=== PATIENT | female | born 1985 | race Caucasian/White ===

== ENCOUNTER 2018-06-10 12:51 | Day surgery (SDC) | payer OTHER ==
[2018-06-10] MEDS ORDERED: KETOROLAC 15 MG/1 ML SDV IVP ONE (13:19)
--- NOTE | 2018-06-10 13:19 | EDPHY ---
H & P Stated Complaint: LLQ Pain - HX of Ovarian Cyst Time Seen by Provider: 06/10/18 13:18 HPI/ROS: CHIEF COMPLAINT: Left lower quadrant pain HISTORY OF PRESENT ILLNESS: The patient presents to the ED with a 2-3 year history of sharp left lower quadrant pain or reminiscent of her prior ovarian cyst several years ago. The patient denies any dysuria or vaginal discharge. She denies any hematuria. She denies prior history of abdominal surgery. She has been using some ibuprofen oxycodone at home for management of her symptoms. The patient denies any vomiting or diarrhea. She denies any additional respiratory symptoms. The patient reports her pain is moderate to severe in nature. REVIEW OF SYSTEMS: A comprehensive 10 point review of systems is otherwise negative aside from elements mentioned in the history of present illness. Source: Patient Exam Limitations: No limitations - Personal History LMP (Females 10-55): Now Current Tetanus Diphtheria and Acellular Pertussis (TDAP): Yes - Medical/Surgical History Hx Asthma: No Hx Chronic Respiratory Disease: No Hx Diabetes: No Hx Cardiac Disease: No Hx Renal Disease: No Hx Cirrhosis: No Hx Alcoholism: No Hx HIV/AIDS: No Hx Splenectomy or Spleen Trauma: No Other PMH: Ovarian Cysts - Social History Smoking Status: Former smoker - Physical Exam Exam: General Appearance: Alert, no distress Eyes: Pupils equal and round no pallor or injection ENT, Mouth: Mucous membranes moist Respiratory: There are no retractions, lungs are clear to auscultation Cardiovascular: Regular rate and rhythm Gastrointestinal: Tenderness to palpation the left lower quadrant over the ovary, no peritoneal signs, no guarding, no CVA tenderness Neurological: 5/5 strength all 4 extremities Skin: Warm and dry, no rashes Musculoskeletal: Neck is supple nontender Extremities: symmetrical, full range of motion Constitutional: Initial Vital Signs Temperature (C) 36.9 C 06/10/18 13:02 Heart Rate 72 06/10/18 13:02 Respiratory Rate 18 06/10/18 13:02 Blood Pressure 116/82 H 06/10/18 13:02 O2 Sat (%) 98 06/10/18 13:02 O2 Delivery Mode Room Air O2 (L/minute) 2 Allergies/Adverse Reactions: gluten Allergy (Verified 06/10/18 13:01) Home Medications: Medication Instructions Recorded NK [No Known Home Meds] 07/25/18 Medical Decision Making - Diagnostics Imaging Results: Imaging Impressions Pelvic/Renal Ultrasound 06/10/18 13:33 Impression: 1. Enlarged left adnexa with dominant cystic component centrally and tiny follicles within presumed edematous ovarian tissue without evidence of internal color flow enhancement suspicious for left adnexal torsion . 2. Normal-appearing uterus and right ovary. Findings discussed with Gage Khoury M.D. at 14:32 hour, 06/10/2018. ED Course/Re-evaluation: The patient presents to the ED for a 2-3 day history of sharp left pelvic pain. She has a prior history of ovarian cyst. The patient's test is negative. She is market tenderness to palpation left lower quadrant. The patient had an IV established. She received 2 mg of IV Dilaudid. She was taken for a pelvic ultrasound which does demonstrate what appears to be a torsed left ovary without flow. Consultation was made with Gynecology at 2:30 p.m.. Didn't hear back so I called the office at 3pm and spoke with Dr. Velazquez. She will see the patient in the ED and make arrangement to take the patient to the OR for evaluation of her ovarian torsion. The patient has been informed of the plan. Dr. Velazquez stated the patient may go home after surgery depending on the findings. As a result no bed request has been placed. Differential Diagnosis: Differential diagnosis considered includes ectopic , ovarian torsion, ovarian cyst, UTI, PID, tubo-ovarian abscess - Data Points Laboratory Results: Laboratory Results 06/10/18 13:20 06/10/18 13:20 06/10/18 06/10/18 06/10/18 13:20 13:20 13:20 WBC 12.08 10^3/uL H 10^3/uL (3.80-9.50) RBC 4.05 10^6/uL L 10^6/uL (4.18-5.33) Hgb 13.1 g/dL g/dL (12.6-16.3) Hct 36.9 % L % (38.0-47.0) MCV 91.1 fL fL (81.5-99.8) MCH 32.3 pg pg (27.9-34.1) MCHC 35.5 g/dL g/dL (32.4-36.7) RDW 13.2 % % (11.5-15.2) Plt Count 194 10^3/uL 10^3/uL (150-400) MPV 9.6 fL fL (8.7-11.7) Neut % (Auto) 84.9 % H % (39.3-74.2) Lymph % (Auto) 7.0 % L % (15.0-45.0) [place] % (Auto) 7.5 % % (4.5-13.0) Eos % (Auto) 0.0 % L % (0.6-7.6) Baso % (Auto) 0.2 % L % (0.3-1.7) Nucleat RBC Rel Count 0.0 % % (0.0-0.2) Absolute Neuts (auto) 10.27 10^3/uL H 10^3/uL (1.70-6.50) Absolute Lymphs (auto) 0.84 10^3/uL L 10^3/uL (1.00-3.00) Absolute Monos (auto) 0.90 10^3/uL H 10^3/uL (0.30-0.80) Absolute Eos (auto) 0.00 10^3/uL L 10^3/uL (0.03-0.40) Absolute Basos (auto) 0.02 10^3/uL 10^3/uL (0.02-0.10) Absolute Nucleated RBC 0.00 10^3/uL 10^3/uL (0-0.01) Immature Gran % 0.4 % % (0.0-1.1) Immature Gran # 0.05 10^3/uL 10^3/uL (0.00-0.10) Sodium 137 mEq/L mEq/L (135-145) Potassium 3.8 mEq/L mEq/L (3.3-5.0) Chloride 106 mEq/L mEq/L (97-110) Carbon Dioxide 23 mEq/l mEq/l (22-31) Anion Gap 8 mEq/L mEq/L (8-16) BUN 9 mg/dL mg/dL (7-23) Creatinine 0.6 mg/dL mg/dL (0.6-1.0) Estimated GFR > 60 Glucose 110 mg/dL H mg/dL (70-100) Calcium 10.0 mg/dL mg/dL (8.5-10.4) Beta HCG, Qual NEGATIVE Medications Given: Discontinued Medications Hydromorphone HCl (Dilaudid) 1 mg IVP EDNOW ONE Stop: 06/10/18 13:57 Last Admin: 06/10/18 14:03 Dose: 1 mg Ketorolac Tromethamine (Toradol) 15 mg IVP EDNOW ONE Stop: 06/10/18 13:20 Last Admin: 06/10/18 13:23 Dose: 15 mg Departure - Departure Disposition: To OP Cath/Surgery Clinical Impression: Torsion of left ovary and ovarian pedicle Condition: Good Referrals: NONE *PRIMARY CARE P,. [Primary Care Provider] - As per Instructions
[2018-06-10 13:33] LABS: PLATELET COUNT 194 10^3/uL (150-400)
[2018-06-10] MEDS ORDERED: HYDROmorphONE/DILAUDID 2 MG/ML INJ IVP ONE (13:56)
[2018-06-10] MEDS ORDERED: LR 1,000 ML IV SCH (15:30)
[2018-06-10] MEDS ORDERED: ACETAMINOPHEN 500 MG TAB PO PRN (15:40)
[2018-06-10] MEDS ORDERED: HYDROmorphONE/DILAUDID 1 MG/ML INJ IVP PRN ×2 (15:40→16:46)
[2018-06-10] MEDS ORDERED: fentaNYL 100 MCG/2 ML INJ IVP PRN ×2 (15:40→16:46)
[2018-06-10] MEDS ORDERED: HYDROCODONE/APAP 5/325 TAB PO PRN ×2 (15:40→16:46)
[2018-06-10] MEDS ORDERED: LR 500 ML IV PRN (15:40)
[2018-06-10] MEDS ORDERED: oxyCODONE IR 5 MG TAB PO PRN ×2 (15:40→16:46)
[2018-06-10] MEDS ORDERED: ALBUTEROL 3 ML DEYVIAL IH PRN ×2 (15:40→16:46)
[2018-06-10] MEDS ORDERED: NALOXONE HCL 0.4 MG/ML INJ IVP PRN ×2 (15:40→16:46)
[2018-06-10] MEDS ORDERED: ONDANSETRON 4 MG/2 ML VIAL IVP PRN ×2 (15:40→16:46)
[2018-06-10] MEDS ORDERED: DEXAMETHASONE 4 MG/ML VIAL IVP PRN ×2 (15:40→16:46)
[2018-06-10] MEDS ORDERED: MIDAZOLAM 2 MG/2 ML VIAL IVP ONE (15:41)
[2018-06-10] MEDS ORDERED: PROPOFOL/EMULSION 500 MG/50 ML BOTTLE IV ONE (15:54)
[2018-06-10] MEDS ORDERED: fentaNYL 100 MCG/2 ML INJ ONE ×2 (15:56→18:12)
[2018-06-10] MEDS ORDERED: BUPIVACAINE 0.25% 30 ML SDV ONE (16:02)
[2018-06-10] MEDS ORDERED: SILVER NITRATE APPLICATOR 1 APPL TP ONE (16:02)
[2018-06-10] MEDS ORDERED: ceFAZolin 2 GM/DEXTROSE 100 ML IV ONE (16:06)
[2018-06-10] MEDS ORDERED: ONDANSETRON 4 MG/2 ML VIAL ONE (16:18)
[2018-06-10] MEDS ORDERED: DEXAMETHASONE 4 MG/ML VIAL ONE (16:18)
[2018-06-10] MEDS ORDERED: PROMETHAZINE HCL 25 MG/ML INJ IVP PRN (16:46)
--- NOTE | 2018-06-10 16:57 | GHP ---
[f rep st] PREOP HISTORY AND PHYSICAL DATE OF ADMISSION: 06/10/2018 ADMITTING DIAGNOSES: 1. Left lower quadrant pain. 2. Ovarian torsion. HISTORY OF PRESENT ILLNESS: Patient is a 32-year-old nulliparous female with LMP about a month ago who presents to the emergency room with a 2-3 day history of sharp left lower quadrant pain radiating down to her back. Patient states this is similar to a prior ovarian cyst several years ago that she did not need surgery for. Patient states that pain is exacerbated with any movement. There are no alleviating factors noted. Patient denies any bowel or urinary complaints. She denies any nausea or vomiting, chest pain or shortness of breath. She has been using oxycodone at home that she had for pain with previous cyst. Pain was not controlled today and she presented to the emergency room. PAST OB HISTORY: The patient is nulliparous. 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 Cycles are regular. She bleeds for 5-7 days. Denies a history of abnormal Pap smears or any exposure to sexually transmitted diseases. PAST MEDICAL HISTORY: Remarkable for ovarian cyst. PAST SURGICAL HISTORY: [place] teeth extraction. CURRENT MEDICATIONS: Include oxycodone as needed, ibuprofen as needed. ALLERGIES: No known drug allergies. SOCIAL HISTORY: Patient has a [facility]. She lives here in [place] and works at [employer]. Denies any alcohol, tobacco, or illicit drug use. REVIEW OF SYSTEMS: 10-point review of systems negative. Pertinent positives noted in HPI. LABS: WBC 12, H and H 13.1 and 36.9, platelets 194. STUDIES: On ultrasound, uterus measures 6 x 2 x 4 cm with endometrial thickness 3-4 mm and no definite uterine fibroids. Within the left adnexa, there is a large structure. The left adnexa in total measures 9 x 7 x 7.8 cm with a central dominant cystic component measuring 5 x 3 x 3 cm. No evidence of internal color flow that is consistent with a torsed left ovary. Normal- appearing right ovary and tube. There is a mild amount of free fluid in the pelvis. PHYSICAL EXAMINATION: VITAL SIGNS: On admission, patient is afebrile at 36.9, heart rate 72, respiratory rate 18, blood pressure 116/82, 98% on room air. GENERAL: This is a well-nourished, well-developed female, alert and oriented x3. Mild distress. SKIN: Warm, dry without rash. NEURO: Grossly intact. CARDIOVASCULAR: Regular rate and rhythm. LUNGS: Clear to auscultation bilaterally. ABDOMEN: Soft. There is [id number] tenderness in left lower quadrant. No rebound. No guarding. PELVIC: Exam is deferred. EXTREMITIES: Normal to inspection without calf tenderness or edema. ASSESSMENT/PLAN: Patient is a 32-year-old nulliparous female who presents with left lower quadrant pain and ovarian torsion. 1. Discussed with patient and her fiancee the ultrasound findings that show no flow to the left ovary and suggests ovarian torsion. Also discussed that with the pain she's been having for the last 2 or 3 days, the ovary may not be viable. 2. Discussed proceeding with a laparoscopy and evaluating the pelvis and either untorsing left ovary or removing left ovary and tube if not viable. 3. Consents were obtained. Discussed risks, benefits, and alternatives of the procedure, including, but not limited to, bleeding, infection, and damage to surrounding organs, including bowel, bladder, and ureters. 4. Patient understands all risks of the procedure and wants to proceed at this time. 5. Sequential compression devices for deep venous thrombosis prophylaxis. 6. Antibiotics on-call to operating room. /[id number]/MODL MTDD
[2018-06-10] MEDS ORDERED: ROCURONIUM 50 MG/5 ML VIAL ONE (17:32)
[2018-06-10] MEDS ORDERED: KETOROLAC 30 MG/1 ML SDV ONE (18:18)
--- NOTE | 2018-06-10 18:23 | POSTOPPROG ---
Post Op Note Date of Operation: 06/10/18 Surgeon: Radha Velazquez Automotive Technician Instructor: Saima Guerrero Anesthesia: GET(General Endotracheal) Pre-op Diagnosis: LLQ pain; L ovarian torsion Post-op Diagnosis: LLQ pain; L ovarian torsion Indication: 32 y/o nullip w/ 2-3 days of LLQ pain; U/S revealed no flow to L ovary Procedure: Laparoscopic LSO Findings: A lg hemorrhagic cyst and nonviable L ovary; uterus, R tube and ovary wnl Inf/Abcess present in the surg proc area at time of surgery?: No Depth: Organ Space EBL: 50-100 (50 cc) Total fluids administered: 800 cc LR UO: 200 cc clear urine Complications: None Specimen(s): Left tube and ovary
--- NOTE | 2018-06-10 18:30 | POSTANESTH ---
Post Anesthetic Evaluation Cardiovascular Status: Normal, Stable Respiratory Status: Normal, Stable Level of Consciousness/Mental Status: Mildly Sleepy, Arousable Pain Control: Adequate, Prn Tx Ordered Nausea/Vomiting Control: Adequate, Prn Tx Ordered Complications Possibly Related to Anesthesia: None Noted
[2018-06-10] MEDS ORDERED: HYDROCODONE/APAP 5/325 TAB ONE (19:22)
[2018-06-10 20:48] VITALS: BP 123/80
--- NOTE | 2018-06-11 02:45 | GOP ---
[f rep st] OPERATIVE REPORT DATE OF OPERATION: 06/10/2018 SURGEON: Radha Velazquez DO CODER OPERATOR: CESAR Amaro ANESTHESIA: General with endotracheal tube. ANESTHESIOLOGIST: Jose Bailon M.D. PREOPERATIVE DIAGNOSIS: 1. Left lower quadrant pain. 2. Left adnexal mass. 3. Left ovarian torsion. POSTOPERATIVE DIAGNOSIS: 1. Left lower quadrant pain. 2. Left adnexal mass. 3. 9 cm left ovarian cyst with torsion. 4. Nonviable left ovary. PROCEDURE PERFORMED: Laparoscopic left salpingo-oophorectomy. FINDINGS: A 9-10 cm enlarged left ovary with cyst noted to be torsed twice and nonviable with infarction- purplish black color noted. Small amount of blood was noted in the cul-de-sac. Uterus, right tube and right ovary were grossly normal-appearing. Upper abdomen grossly normal appearing as well. SPECIMENS: Left tube and ovary. ESTIMATED BLOOD LOSS: EBL 50 cc. INDICATIONS: Patient is a 32-year-old nulliparous female with last menstrual period about 4 weeks ago, who presented to the emergency room with 2-3 days of left lower quadrant pain that was getting severe, not controlled with oxycodone. Patient denies any nausea, vomiting, chest pain, or shortness of breath. Denies any vaginal bleeding or abnormal discharge. The patient did have an ultrasound in the emergency room that demonstrated a large structure in the left adnexa measuring 9 x 7 x 7.8 cm with a central dominant cystic component measuring 5 x 3 x 3 cm with no evidence of internal color flow consistent with left torsed ovary. Normal-appearing right ovary and tube seen. Mild amount of free fluid in the pelvis. Discussed ultrasound findings with the patient and her fiance and recommend proceeding to the OR for a laparoscopy with evaluation of the pelvis, and possible untwisting the left ovary or removing left ovary and tube if found to be nonviable since the pain has been going on for the last 72 hours. We discussed the risks, benefits, alternatives of the procedure including but not limited to, bleeding, infection, and damage to surrounding organs. The patient understands all risks of the surgery and wants to proceed at this time. The patient was properly consented. DESCRIPTION OF PROCEDURE: The patient was taken to the operating room where general anesthesia was obtained without difficulty. The patient was placed in dorsal lithotomy position and prepped and draped in the usual sterile fashion. A Barajas catheter was placed at this time. After a WHO time-out was performed, an open end speculum was placed in the patient's vagina. The anterior lip of the cervix was grasped with an Allis clamp. The uterus was sounded to 7 cm and an acorn manipulator was then placed in the cervix and used to manipulate the uterus as needed. The weighted speculum was then removed. We turned our attention to the abdomen, where a 5mm infraumbilical incision was made after placement of local 0.25% plain Marcaine. The Veress needle was then placed into the incision while the abdomen was being tented up. Aspiration was negative and CO2 gas was then turned on with un-occluded flow and excellent opening pressure. Pneumoperitoneum was obtained. A 5 mm trocar with attached 0 degree laparoscope was placed in the infraumbilical port without any difficulty under direct visualization. At this time, after injection of more local, 0.25% plain Marcaine, a 10 mm skin incision was made in the right lower quadrant and a 5 mm skin incision was made in the left lower quadrant. Atraumatic trocars were then placed under direct visualization without any difficulty. Pelvic findings as noted above. At this time, using a grasper, the left ovary was noted to be torsed twice and was untwisted. The ovary remained infarcted and nonviable appearing. Aspiration of the ovary was attempted to shrink the size of the mass, but very little fluid, blood was removed. The left IP ligament was identified and then cauterized multiple times using the LigaSure and then transected. This was carried up through the mesosalpinx and along the fallopian tube, cauterizing with the Ligasure and then transecting. This was done all the way up to the cornual insertion of the fallopian tube using the LigaSure. At this point, the left tube and ovary were amputated and all pedicles did appear hemostatic. The EndoCatch bag was then placed through the 10 mm port. The left ovary and tube were placed into this bag without much difficulty. The bag was then closed and the left ovary and tube were removed through the 10 mm port with some difficulty secondary to size. The incision had to be extended somewhat to allow for removal of the large specimen. Specimen was then sent to pathology. The trocar and sleeve were then placed back into the 100 mm incision. The abdomen was copiously irrigated with warm normal saline using the suction brushing operator. All pedicles did appear hemostatic. The left ureter was visualized and noted to be peristalsing. At this point, using the Peyman-Ej fascial device, the 10 mm fascia was closed with 0 Vicryl. The other trocars were then removed under visualization without bleeding. The CO2 gas was allowed to escape from the abdomen. The 5 mm skin incisions were then closed with Dermabond. The subcutaneous layer of the 10 mm incision was closed with 3-0 Vicryl and the skin was then closed with Dermabond. The patient tolerated the procedure well. There were no complications. All instruments were removed from the vagina. Hemostasis was noted from the cervix. Barajas catheter was removed with clear urine noted. Sponge, lap, instrument and needle counts correct x2. The patient was then taken out of dorsal lithotomy position, awakened and taken to the recovery room in stable condition. COMPLICATIONS: None. IV FLUIDS: 800 cc LR. URINE OUTPUT: 200 cc of clear urine at the end of the procedure. /[id number]/MODL MTDD
== END 2018-06-10 20:16 | disposition home or self-care (01) ==
LOC: FSGY 15:20
PROVIDERS: ATTEND Obstetrics & Gynecology
PROC: 0UT1FZZ Resection of Left Ovary, Via Natural or Artificial Opening With Percutaneous Endoscopic Assistance (ICD-10-PCS; principal; 2018-06-10 16:30)
PROC: 0UT6FZZ Resection of Left Fallopian Tube, Via Natural or Artificial Opening With Percutaneous Endoscopic Assistance (ICD-10-PCS; principal; 2018-06-10 16:30)
DX: N83.512 Torsion of left ovary and ovarian pedicle (principal); N83.202 Unspecified ovarian cyst, left side; R19.09 Other intra-abdominal and pelvic swelling, mass and lump; Z87.891 Personal history of nicotine dependence
CPT/HCPCS: 96374; J0690; J1100; J1170; J1885; J2250; J2405; J2704; J3010

== ENCOUNTER 2019-02-23 16:06 | Day surgery (SDC) | payer OTHER ==
--- NOTE | 2019-02-23 14:56 | PDGENHP ---
History and Physical - Chief Complaint Acute pelvic pain, Right ovarian cyst - History of Present Illness Yas is a 33 yo nulliparous female who was seen in our office today for acute RLQ pain - found to have two large cystic masses a/w right ovary. One if 4cm in largest dimension with a possible papillary projection per our port crane operator, and another that is 5cm in largest dimension with perhaps thicker jiang. She is tearful in pain - dopplers show normal flow to right ovary, but concern for intermittent torsion given the sharp shooting nature of her pain. Also she does have a h/o large ovarian cyst and torsion on the left which actually required urgent surgical evaluation by Dr. Velazquez on 06/10/18. Intraop - found to have 10cm enlarged left ovary clearly torsed twice over, non- viable purple/black ovary. Had LSO. Right ovary normal at that time. US 02/04/19 (outside facility): Left ovary absent. Right ovary enlarged measuring 5.6cm. Contains multiple follicles which are somewhat peripherally located, finding which may be seen in PCOS. Also a complex cyst measuring 2.5cm. History Information - Allergies/Home Medication List Allergies/Adverse Reactions: gluten Allergy (Verified 06/10/18 13:01) Home Medications: NK [No Known Home Meds] 06/10/18 [Last Taken Unknown] I have personally reviewed and updated: family history, medical history, social history, surgical history Past Medical History: Ovarian cysts, PCOS - Surgical History Additional surgical history: [place] teeth, LS LSO 2018 for left ovarian cyst and torsion - Social History Smoking Status: Former smoker Review of Systems Review of Systems: ROS: 10pt was reviewed & negative except for what was stated in HPI & below Physical Exam Physical Exam: Not examined in the office at the time of preop visit. Constitutional: other (Appears uncomfortable, tearful) Assessment & Plan Assessment: Preop: Diagnostic laparoscopy, right ovarian cystectomies - Routine preop orders, no need for abx. - Will sign consents in preop. - Discussed papillary projetions and small concern for malignancy in the office today. Our goal will be to separate the cysts from the right ovary and place/ drain them in a bag, but cyst rupture is possible. Also discussed that if there is some degree of torsion that it's possible the ovary is compromised, or could separately become compromised during the operation requiring removal. Thought that also is not the plan. - Likely home from PACU, but could stay overnight if needed. ODILIA
[2019-02-23] MEDS ORDERED: SILVER NITRATE APPLICATOR 1 APPL TP ONE (16:23)
[2019-02-23] MEDS ORDERED: BUPIVACAINE/EPI 0.25% 30 ML SDV ONE (16:23)
[2019-02-23] MEDS ORDERED: LR 1,000 ML IV ONE (16:27)
[2019-02-23] MEDS ORDERED: fentaNYL 100 MCG/2 ML INJ IVP ONE (16:50)
[2019-02-23] MEDS ORDERED: fentaNYL 100 MCG/2 ML INJ ONE ×3 (16:53→20:47)
[2019-02-23] MEDS: fentaNYL 100 MCG/2 ML INJ IVP PRN ×4 (16:58→20:48)
[2019-02-23] MEDS ORDERED: MIDAZOLAM 2 MG/2 ML VIAL IVP ONE (17:48)
--- NOTE | 2019-02-23 17:48 | PDANEPAE ---
ANE History of Present Illness Laparoscopic ovarian cystectomy. ANE Past Medical History - Cardiovascular History Hx Hypertension: No Hx Arrhythmias: No Hx Chest Pain: No Hx Coronary Artery / Peripheral Vascular Disease: No Hx CHF / Valvular Disease: No Hx Palpitations: No - Pulmonary History Hx COPD: No Hx Asthma/Reactive Airway Disease: No Hx Recent Upper Respiratory Infection: No Hx Oxygen in Use at Home: No Hx Sleep Apnea: No - Neurologic History Hx Cerebrovascular Accident: No Hx Seizures: No Hx Dementia: No - Endocrine History Hx Diabetes: No Obesity: no - Renal History Hx Renal Disorders: No - Liver History Hx Hepatic Disorders: No - Neurological & Psychiatric Hx Hx Neurological and Psychiatric Disorders: No - Cancer History Hx Cancer: No - Congenital Disorder History Hx Congenital Disorders: No - GI History GERD: no Hx Gastrointestinal Disorders: No - Surgical History Prior Surgeries: ovary removal left ANE Review of Systems Review of Systems: - Exercise capacity METS (RN): 6 METS ANE Patient History - Allergies Allergies/Adverse Reactions: gluten Allergy (Verified 06/10/18 13:01) - Home Medications Home Medications: NK [No Known Home Meds] 06/10/18 [Last Taken Unknown] - NPO status NPO Since - Liquids (Date): 02/23/19 NPO Since - Liquids (Time): 16:00 NPO Since - Solids (Date): 02/23/19 NPO Since - Solids (Time): 10:00 - Anes Hx Anes Hx: no prior problems - Smoking Hx Smoking Status: Former smoker Marijuana use: Yes - Alcohol Use Alcohol Use: Other (6 drinks/week) - Family Anes Hx Family Anes Hx: none Family Hx Anesthesia Complications: none ANE Labs/Vital Signs - Vital Signs Blood Pressure: 101/65 Heart Rate: 96 Respiratory Rate: 16 O2 Sat (%): 100 Height: 167.64 cm Weight: 58.967 kg ANE Physical Exam - Airway Neck exam: FROM Mallampati Score: Class 1 Mouth exam: normal dental/mouth exam - Pulmonary Pulmonary: clear to auscultation - Cardiovascular Cardiovascular: regular rate and rhythym - ASA Status ASA Status: II, E ANE Anesthesia Plan Anesthesia Plan: general endotracheal anesthesia
[2019-02-23] MEDS ORDERED: fentaNYL 250 MCG/5 ML INJ ONE (17:54)
[2019-02-23] MEDS ORDERED: PROPOFOL 200 MG/20 ML VIAL ONE (17:54)
[2019-02-23] MEDS ORDERED: ROCURONIUM 50 MG/5 ML VIAL ONE (17:55)
[2019-02-23] MEDS ORDERED: DEXAMETHASONE 4 MG/ML VIAL ONE (17:56)
[2019-02-23] MEDS ORDERED: ONDANSETRON 4 MG/2 ML VIAL ONE (19:02)
[2019-02-23] MEDS ORDERED: SURGIFLO MATRIX KIT WITH THROMBIN 8 ML TP ONE (19:06)
[2019-02-23] MEDS ORDERED: KETOROLAC 30 MG/1 ML SDV ONE (19:07)
[2019-02-23] MEDS ORDERED: SUGAMMADEX SODIUM 200 MG/2 ML VIAL IVP ONE (19:07)
[2019-02-23] MEDS ORDERED: NALOXONE HCL 0.4 MG/ML INJ IVP PRN (19:14)
[2019-02-23] MEDS ORDERED: fentaNYL 100 MCG/2 ML INJ IVP PRN (19:14)
[2019-02-23] MEDS ORDERED: ONDANSETRON 4 MG/2 ML VIAL IVP PRN (19:14)
[2019-02-23] MEDS ORDERED: HYDROmorphONE/DILAUDID 1 MG/ML INJ IVP PRN (19:14)
--- NOTE | 2019-02-23 19:54 | POSTANESTH ---
Post Anesthetic Evaluation Cardiovascular Status: Normal, Stable Respiratory Status: Normal, Stable Level of Consciousness/Mental Status: Can Participate in Eval Pain Control: Adequate, Prn Tx Ordered Nausea/Vomiting Control: Adequate, Prn Tx Ordered Complications Possibly Related to Anesthesia: None Noted (BBB noted on monitor. 12 lead EKG shows LBBB . Discussed with patient and will provide copy of EKG. She is advised to discuss with 1MD.)
--- NOTE | 2019-02-23 19:55 | POSTOPPROG ---
Post Op Note Date of Operation: 02/23/19 Surgeon: Julian Herrera Cna Per Diem: CESAR Amaro Anesthesiologist: Lebron Coughlin Anesthesia: GET(General Endotracheal) Pre-op Diagnosis: Acute pelvic pain, right ovarian cyst Post-op Diagnosis: Right ovarian cyst with torsion Procedure: Diagnostic laparoscopy, right ovarian cystectomy Findings: Enlarged 8cm right ovary, torsed on initial inspection, viable ovary Inf/Abcess present in the surg proc area at time of surgery?: No EBL: Minimal (50cc) Complications: None Specimen(s): Right ovarian cyst wall, Peritoneal washings
--- NOTE | 2019-02-23 20:03 | SUROPNOTE ---
[facility] Operative Report - Surgery Date of Operation: 02/23/19 Surgeon: Julian Herrera Automotive Brake Specialist: CESAR Amaro Anesthesiologist: Lebron Coughlin Anesthesia: GET(General Endotracheal) Pre-op Diagnosis: Acute pelvic pain, right ovarian cyst Post-op Diagnosis: Right ovarian cyst with torsion Procedure: Diagnostic laparoscopy, right ovarian cystectomy Findings: Enlarged 8cm right ovary, torsed on initial inspection, viable ovary Inf/Abcess present in the surg proc area at time of surgery?: No EBL: Minimal (50cc) Complications: None Specimen(s): Right ovarian cyst wall, Peritoneal washings Technique:
[2019-02-23] MEDS ORDERED: HYDROCODONE/APAP 5/325 TAB ONE (21:55)
[2019-02-23 22:41] VITALS: BP 113/70
--- NOTE | 2019-02-24 09:10 | CPEKG ---
Test Reason : OPEN Blood Pressure : / mmHG Vent. Rate : 083 BPM Atrial Rate : 083 BPM P-R Int : 182 ms QRS Dur : 162 ms QT Int : 442 ms P-R-T Axes : 064 -25 099 degrees QTc Int : 520 ms Sinus rhythm Left bundle branch block Confirmed by Willie Alvarez ([id number]) on 02/24/2019 9:10:19 AM Referred By: Radha Velazquez Confirmed By:Willie Alvarez
== END 2019-02-23 22:46 | disposition home or self-care (01) ==
LOC: FSGY 16:06
PROVIDERS: ATTEND Obstetrics & Gynecology
PROC: 0UB04ZX Excision of Right Ovary, Percutaneous Endoscopic Approach, Diagnostic (ICD-10-PCS; principal; 2019-02-23 18:00)
PROC: 0D9W4ZX Drainage of Peritoneum, Percutaneous Endoscopic Approach, Diagnostic (ICD-10-PCS; principal; 2019-02-23 18:00)
DX: N83.511 Torsion of right ovary and ovarian pedicle (principal); N83.201 Unspecified ovarian cyst, right side; R10.2 Pelvic and perineal pain; Z90.721 Acquired absence of ovaries, unilateral
CPT/HCPCS: J1100; J1885; J2250; J2405; J2704; J3010